=== PATIENT | male | born 1980 | race Caucasian/White ===

== ENCOUNTER 2019-05-31 18:55 | Emergency (ER) | payer OTHER ==
[~2019-05-31] VITALS: Ht 185.4 cm; Wt 93.9 kg
[2019-05-31 19:21] VITALS: Ht 185.4 cm; Wt 93.9 kg
[2019-05-31 21:32] VITALS: BP 135/70
== END 2019-05-31 21:32 | disposition home or self-care (01) ==
LOC: ED 18:55
DX: S16.1XXA Strain of muscle, fascia and tendon at neck level, initial encounter (principal); S09.8XXA Other specified injuries of head, initial encounter; W20.8XXA Other cause of strike by thrown, projected or falling object, initial encounter; Y93.89 Activity, other specified; Y92.89 Other specified places as the place of occurrence of the external cause; Y99.0 Civilian activity done for income or pay
CPT/HCPCS: 82962

== ENCOUNTER 2020-05-26 13:54 | Emergency (ER) | payer SELFPAY ==
[~2020-05-26] VITALS: Ht 185.4 cm; Wt 99.8 kg
[2020-05-26 13:56] VITALS: Ht 185.4 cm; Wt 99.8 kg
[2020-05-26] MEDS ORDERED: BACTRIM DS1 TAB PO (14:50)
[2020-05-26] MEDS ORDERED: LOMOTIL1 TAB PO (14:50)
[2020-05-26 15:08] VITALS: BP 121/78
== END 2020-05-26 15:09 | disposition home or self-care (01) ==
LOC: ED 13:54
DX: K52.9 Noninfective gastroenteritis and colitis, unspecified (principal); Z20.822 Contact with and (suspected) exposure to COVID-19; Z90.49 Acquired absence of other specified parts of digestive tract; Z90.89 Acquired absence of other organs
CPT/HCPCS: U0003